=== PATIENT | male | born 1970 | race Caucasian/White ===

== ENCOUNTER 2016-08-31 14:20 | Observation (INO) | payer OTHER ==
[~2016-08-31] VITALS: Ht 180.3 cm; Wt 98.4 kg
[~2016-08-31 14:20] MED LIST: NORCO 10-325 T1 EACH PO; PEPCID DPS20 MG PO; TYLENOL DPS325 MG PO
--- NOTE | 2016-09-01 08:17 | HP ---
ADMIT: 08/31/2016 RM/LOC: 525 [facility] MR#: [id number] [id number] [place], [place] [address] JOSE WHITEHEAD [address] [address] History and Physical SEX: M AGE: 45 : 1970 DATE OF SERVICE: CHIEF COMPLAINT: Abdominal pain. HISTORY OF PRESENT ILLNESS: Jose is a 45-year-old, male, who generally gets his primary care from Dr. Ribeiro, who presented to the emergency department today complaining of a 1-day history of epigastric abdominal pain. He has a history of pancreatitis about 2 years ago. At that time, he was hospitalized for almost 1 week, and he reports that it took him over a month to recover. It was thought at that time it was due to gallstones. He did not follow up with surgery and therefore did not have his gallbladder removed. He, however, did decrease his alcohol intake as he had been an avid wine drinker. Since that time, he has drunk just 2 beers in the last 4 months. Yesterday, he was in his usual state of health and he ate a cheese quesadilla for dinner. He said at that time, his stomach started to feel uneasy, but was tolerable. Today, he stopped at a gas station on his way out of town and ate a sandwich and a cheese stick and had intense abdominal pain. He came to the emergency department for further evaluation and treatment. His other past medical history is significant for HIV. He follows with [facility]ious Disease out of [place] and says his viral load is undetectable. He has no other chronic medical problems. He had a normal bowel movement earlier today and has been passing gas. No nausea or vomiting at this time. Apparently when he presented to the emergency department, he was unable to sit still secondary to the pain. After one dose of morphine and Zofran, he was much more comfortable. Currently, he says his symptoms are resolved. PAST MEDICAL HISTORY: 1. HIV. 2. Cholelithiasis. 3. History of pancreatitis. 4. Obesity. MEDICATIONS: 1. Prezista 800 mg at bedtime. 2. Truvada 200 mg - 300 mg at bedtime. 3. Norvir 100 mg at bedtime. 4. Tivicay 50 mg at bedtime. 5. Aleve twice daily. 6. Zyrtec daily. 7. Flonase 1 to 2 sprays daily. ALLERGIES: SULFA. FAMILY HISTORY: Noncontributory. SOCIAL HISTORY: The patient is a nonsmoker. He drinks alcohol rarely and has had no recent alcohol use. No illicit drug use. REVIEW OF SYSTEMS: As per HPI. Others reviewed and negative. ADMIT: 08/31/2016 RM/LOC: 525 [facility] MR#: [id number] [address] [address] JOSE WHITEHEAD [facility] [place] [address] History and Physical SEX: M AGE: 45 : 1970 PHYSICAL EXAMINATION: VITAL SIGNS: With temperature 96.8, blood pressure 134/79, heart rate 88, respiratory rate 16, and oxygen saturation 100% on room air. GENERAL: The patient is awake, alert, no acute distress. Cooperative with exam. HEENT: Within normal limits. HEART: Regular rate and rhythm. LUNGS: Clear to auscultation bilaterally. No crackles or wheezes. No accessory muscle use. ABDOMEN: Obese, soft, and nontender. Nondistended. Normal bowel sounds. EXTREMITIES: Warm and dry. No edema. NEUROLOGIC: Cranial nerves II through XII grossly intact. No focal neurologic deficit. SKIN: No rash, jaundice, or lesion. LABORATORY DATA: CBC with white blood cell count of 7.1, hemoglobin 16.4, and platelets 170. Metabolic panel with sodium 143, potassium 3.9, chloride 108, carbon dioxide 29, BUN 12, glucose 94, creatinine 1.2, bilirubin 1.1, total protein 7.1, albumin 3.8, alkaline phosphatase 96, AST 29, ALT 47, and lipase 2517. ASSESSMENT AND PLAN: 1. Acute pancreatitis. This is currently improved. We will keep n.p.o. overnight. We will treat pain and nausea as needed. We will continue with IV hydration. Once pain is stable, we will initiate diet. I am concerned that this is secondary to his cholelithiasis; therefore, we will repeat an ultrasound and likely follow with surgery as an outpatient. 2. Human immunodeficiency virus. The patient reports an undetectable viral load. We will continue his antivirals while inpatient. Annmarie Rankin MD/ jass JOB #: [id number] CC: Annmarie Rankin, Attending Physician Annmarie Rankin, Family Physician
[2016-09-02] MEDS ORDERED: ALEVE220 M1 PO (09:38)
[2016-09-02] MEDS ORDERED: PREZISTA800 MG PO (09:38)
[2016-09-02] MEDS ORDERED: NORVIR100 MG PO (09:38)
[2016-09-02] MEDS ORDERED: TRUVADA 100 MG1 EACH PO (09:38)
[2016-09-02] MEDS ORDERED: ZYRTEC DPS10 MG PO (09:39)
[2016-09-02] MEDS ORDERED: FLONASE 0.05% D16 GM NS (09:39)
--- NOTE | 2016-09-08 08:15 | ER ---
ADMIT: 08/31/2016 RM/LOC: ER [facility] MR#: [id number] [place], [place] [address] ROSALIND WHITEHEAD [address] [id number] Emergency Room Report SEX: M AGE: 45 : 1970 DATE: 08/31/2016 This 45-year-old comes to the Emergency Department with 30 minutes of abdominal pain. It is in the epigastrium, described as sharp, 9/10. He has had similar symptoms in the past, which he said was pancreatitis and that was approximately a year ago. He has nausea, but no vomiting. Denies fever or chills. No cough or cold. No dysuria. PAST MEDICAL HISTORY: HIV, pancreatitis, and kidney stones. PHYSICAL EXAMINATION: GENERAL: Reveals a 45-year-old gentleman in a mild amount of distress, holding his abdomen. HEENT: Normocephalic, atraumatic. LUNGS: Clear to auscultation. CARDIOVASCULAR: No murmur. Regular rate and rhythm. ABDOMEN: Tender in the epigastrium with no guarding or rebound. EXTREMITIES: Unremarkable. PERTINENT LABS: Lipase was 2517. CBC was within normal parameters. The patient is being admitted with diagnosis of acute pancreatitis. David Camacho MD/ jass JOB #: [id number] CC: David Camacho MD, Attending Physician
== END 2016-09-01 13:50 | disposition home or self-care (01) ==
LOC: ER 14:20 → 5MS 16:43
PROVIDERS: ADMIT Family Medicine
DX: K85.90 Acute pancreatitis without necrosis or infection, unspecified (principal); B20 Human immunodeficiency virus [HIV] disease; E66.9 Obesity, unspecified; Z87.19 Personal history of other diseases of the digestive system; Z79.899 Other long term (current) drug therapy; Z88.2 Allergy status to sulfonamides